=== PATIENT | female | born 1995 | race Caucasian/White ===

== ENCOUNTER 2024-01-11 23:01 | Outpatient (CLI) | payer MEDICAID, SELFPAY ==
[2024-01-11 22:40] VITALS: BMI 27.9
[2024-01-11 23:15] VITALS: BP 130/59; PULSE 105
--- NOTE | 2024-01-11 23:16 | USR_ITS ---
PROCEDURE INFORMATION: Exam: US After First Trimester, Transabdominal Exam date and time: 01/11/2024 11:43 PM Age: 28 years old Clinical indication: Other: No care; ; Additional info: No care, elissa, bpp, due date LABS AND CLINICAL REPORTS: Last menstrual period start date: 04/08/2023 Gestational age (Established): 39 w 5 d Estimated due date (Established): 01/13/2024 TECHNIQUE: Imaging protocol: Real-time transabdominal obstetrical ultrasound of the maternal pelvis and a second or third trimester with image documentation. COMPARISON: No relevant prior studies available. FINDINGS: Single living fetus in cephalic position. Biophysical profile was 8/. Anterior placenta. No visible placental abnormality on the provided images. Amniotic fluid volume appears within normal limits for gestation, ELISSA 12.7 cm. Cervical length was estimated with transabdominal scanning, measuring approximately 4.2 cm. No definite cervical canal dilation or fluid on the provided images. BPD: , 9.7 cm. , 39 weeks, 5 days HC: , 34.0 cm. , 39 weeks, 1 day AC: , 36.4 cm. , 40 weeks, 2 days FL: , 7.8 cm. , 40 weeks, 0 days Composite age: 39 weeks, 6 days. Estimated weight: 3960 grams, (8 lb 12 oz). heart activity documented by the technologist, 153 bpm. Complete/detailed evaluation of anatomy was not performed/possible at this time. However, limited gross visualization of anatomy on the provided images appears within normal limits for gestation, including four-chamber heart, stomach, kidneys, urinary bladder, three-vessel cord, spine, cerebral lateral ventricles, cerebellum, cisterna magna. There is at least partial visualization the upper and lower extremities. Cord insertion was not visualized. Limited/insufficient visualization of the facial structures. No visible maternal adnexal abnormality. The urinary bladder was not completely evaluated/imaged at this time. 1. Single living fetus, composite age: 39 weeks, 6 days. 2. Biophysical profile 8. 3. Amniotic fluid volume appears within normal limits for gestation, ELISSA 12.7 cm. 4. Anterior placenta. No visible placental abnormality on the provided images. 5. Other details/findings discussed above. PROCEDURE INFORMATION: Exam: US Biophysical Profile Without Non-Stress Test Exam date and time: 01/11/2024 11:43 PM Age: 28 years old Clinical indication: Other: No care; ; Additional info: No care, elissa, bpp, due date TECHNIQUE: Imaging protocol: US biophysical profile without non-stress testing. COMPARISON: No relevant prior studies available. FINDINGS: Single living fetus in cephalic position. Biophysical profile was 8/8. Anterior placenta. No visible placental abnormality on the provided images. Amniotic fluid volume appears within normal limits for gestation, ELISSA 12.7 cm. Cervical length was estimated with transabdominal scanning, measuring approximately 4.2 cm. No definite cervical canal dilation or fluid on the provided images. BPD: , 9.7 cm. , 39 weeks, 5 days HC: , 34.0 cm. , 39 weeks, 1 day AC: , 36.4 cm. , 40 weeks, 2 days FL: , 7.8 cm. , 40 weeks, 0 days Composite age: 39 weeks, 6 days. Estimated weight: 3960 grams, (8 lb 12 oz). heart activity documented by the technologist, 153 bpm. Complete/detailed evaluation of anatomy was not performed/possible at this time. However, limited gross visualization of anatomy on the provided images appears within normal limits for gestation, including four-chamber heart, stomach, kidneys, urinary bladder, three-vessel cord, spine, cerebral lateral ventricles, cerebellum, cisterna magna. There is at least partial visualization the upper and lower extremities. Cord insertion was not visualized. Limited/insufficient visualization of the facial structures. No visible maternal adnexal abnormality. The urinary bladder was not completely evaluated/imaged at this time. US/US OB BPP wo NST [id number] IMPRESSION: IMPRESSION: 1. Single living fetus, composite age: 39 weeks, 6 days. 2. Biophysical profile 8. 3. Amniotic fluid volume appears within normal limits for gestation, ELISSA 12.7 cm. 4. Anterior placenta. No visible placental abnormality on the provided images. 5. Other details/findings discussed above.
[2024-01-11 23:25] VITALS: BP 103/71; PULSE 107
[2024-01-11 23:34] VITALS: BP 148/77; PULSE 95
[2024-01-12 00:04] LABS: Basophils % 0.4 %; Eosinophils # 0.1 10^3/uL (0.0-0.8); Eosinophils % 0.5 %; Hematocrit 41.4 % (36-47); Lymphocytes # 1.9 10^3/uL (0.8-4.8); Lymphocytes % 17.4 %; Mean Corpuscular HGB Conc 33.6 g/dL (30-55); Mean Corpuscular Hemoglobin 29.7 pg (27-33); Mean Corpuscular Volume 88.5 fl (85-98); Mean Platelet Volume 11.7 fL (7.4-10.4); Monocytes # 0.6 10^3/uL (0.2-0.9); Monocytes % 5.3 %; Neutrophils # 8.42 10^3/uL (1.8-7.7); Neutrophils % 75.8 %; Nucleated Red Blood Cells % 0 %; Platelet Count 225 10^3/cmm (157-399); Red Blood Count 4.68 10^6/uL (3.85-5.65); Red Cell Distribution Width 13.7 % (12.1-15.1); White Blood Count 11.12 10^3/uL (3.29-11.43)
[2024-01-12 00:32] LABS: Amphetamines Screen Urine Negative (Negative); Barbiturates Screen Urine Negative (Negative); Benzodiazepines Screen Urine Negative (Negative); Cocaine Screen Urine Negative (Negative); Opiate Screen Urine Negative (Negative); PCP Screen Urine Negative (Negative); THC Screen Urine Negative (Negative)
[2024-01-12 00:38] LABS: Hepatitis B Surface Antigen Non-Reactive (Nonreactive); Rapid Plasma Reagin Syphilis Nonreactive (Nonreactive)
[2024-01-12 00:43] LABS: HIV 1 & 2 Antibody Non-Reactive (Non-Reactiv); HIV 1 & 2 Antigen Non-Reactive (Non-Reactiv)
[2024-01-12 01:23] VITALS: BP 115/79; PULSE 96
[2024-01-12 01:33] VITALS: BP 115/79; PULSE 79; RESP 18
[2024-01-13 12:29] LABS: Chlamydia Trachomatis RNA TMA DETECTED (NOT DETECTED); Neisseria Gonorrhoeae RNA, TMA NOT DETECTED (NOT DETECTED)
== END 2024-01-12 01:35 | disposition home or self-care (01) ==
LOC: OBGYN 01-12 08:35 → OPOB 01-12 14:26 → OBGYN 01-12 14:26
PROVIDERS: Visit Provider Family Medicine
DX: O26.899 Other specified pregnancy related conditions, unspecified trimester (principal); Z3A.00 Weeks of gestation of pregnancy not specified; R10.9 Unspecified abdominal pain
CPT/HCPCS: 36415; 59025; 76819; 85025; 86592; 86762; 86850; 86900; 87340; 87806; 99211

== ENCOUNTER 2024-01-12 16:53 | Inpatient (IN) | payer MEDICAID, SELFPAY ==
[2024-01-12] VITALS (16 sets, daily range): BP systolic 105–141; BP diastolic 55–84; PULSE 77–120; RESP 16; TEMP 36.8; O2SAT 98–99; BMI 27.9
[2024-01-12 16:55] LABS: Basophils # 0.1 10^3/uL (0.0-0.1); Basophils % 0.4 %; Eosinophils % 0.2 %; Hematocrit 37.9 % (36-47); Lymphocytes # 1.9 10^3/uL (0.8-4.8); Lymphocytes % 13.1 %; Mean Corpuscular HGB Conc 34.3 g/dL (30-55); Mean Corpuscular Hemoglobin 30.4 pg (27-33); Mean Corpuscular Volume 88.8 fl (85-98); Mean Platelet Volume 11.7 fL (7.4-10.4); Monocytes # 0.6 10^3/uL (0.2-0.9); Neutrophils # 11.62 10^3/uL (1.8-7.7); Neutrophils % 81.7 %; Nucleated Red Blood Cells % 0 %; Platelet Count 216 10^3/cmm (157-399); Red Blood Count 4.27 10^6/uL (3.85-5.65); Red Cell Distribution Width 13.8 % (12.1-15.1); White Blood Count 14.22 10^3/uL (3.29-11.43)
[2024-01-12] MEDS: dextrose 5%-lactated ringers 1,000 ML 125 ML IV (17:27)
[2024-01-12] MEDS: oxytocin 30 UNIT/500 ML BAG 600 UNIT IV (17:27)
--- NOTE | 2024-01-12 17:30 | P.HP_ITS ---
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 G ?7 P6 No care h/o x six presents at term with painful uterine contractions and spontaneous rupture of membranes with clear fluid patient with no care patient had all previous deliveries at home with a camera tuning engineer she was anticipating delivering at home with this , however, was unable to find a camera tuning engineer at the last minute PMHx: unavailable PSHx: unavailable Present Details : 6 Para: 5 Labs Rubella: Non-Immune RPR: Negative GBS: Unknown Medications/Allergies Home Medications Medication Instructions Recorded Confirmed Last Taken Type ferrous sulfate 325 mg (65 mg 325 mg PO DAILY 01/12/24 01/12/24 Unknown History iron) tablet prenat.vits,kristy,zsv-krgs-iwaue 1 tab PO DAILY 01/12/24 01/12/24 Unknown History Allergies Allergy/AdvReac Type Severity Reaction Status Date / Time red dye Allergy Unknown Verified 01/12/24 18:27 Vitals/I&O/Wt Last Vital Signs Temp 98.5 F 01/13/24 01:15 Pulse 94 01/13/24 02:50 Resp 16 01/13/24 02:50 BP 121/68 01/13/24 02:50 Pulse Ox 97 01/13/24 02:50 O2 Del Method Room Air 01/13/24 02:50 01/12/24 01/12/24 01/13/24 14:59 22:59 06:59 Intake Total 750 / 750 Balance 750 / 750 Weight last 48 hrs Weight 138 lb 8 oz Physical Exam 2 Narrative: Weight 138 lbs; 4?11? General: in discomfort due to contractions Cervix: 8 ? 9 cm / 100 % / + 1 station External monitor: heart tracing good variability, + accelerations Data 01/13/24 05:10 Results Labs OB ([facility]): 2 Obstetrics US/Biophysical Profile Blood Type O Positive 01/12/24 Antibody Screen Negative 01/12/24 Hct 28.7 % (36-47) L 01/13/24 Hgb 9.40 g/dL (11.27-16.99) L 01/13/24 Rho(D) Type Rh positive 01/12/24 Plt Count 144 10^3/cmm (157-399) L 01/13/24 Hep Bs Antigen Non-reactive (Nonreactive) 01/11/24 Rubella IgG Antibody 1.0 IU/mL (0.0-10.0) 01/11/24 RPR Nonreactive (Nonreactive) 01/11/24 HIV 1&2 Ab & HIV 1 Ag Non-reactive (Non-Reactiv) 01/11/24 C.trachomatis RNA (TMA) Pending 01/11/24 N.gonorrhoeae RNA (TMA) Pending 01/11/24 Chlamydia/GC Comment Pending 01/11/24 Urine Opiates Screen Negative ng/mL (Negative) 01/11/24 Ur Barbiturates Screen Negative ng/mL (Negative) 01/11/24 Ur Phencyclidine Scrn Negative ng/mL (Negative) 01/11/24 Ur Amphetamines Screen Negative ng/mL (Negative) 01/11/24 U Benzodiazepines Scrn Negative ng/mL (Negative) 01/11/24 Urine Cocaine Screen Negative ng/mL (Negative) 01/11/24 U Marijuana (THC) Screen Negative ng/mL (Negative) 01/11/24 A&P Assessment and plan (1) Active labor: Term , according to patient No care In active labor Cervical exam shows imminent delivery Attestations 2 Medical Necessity Statement*: patient at term with painful contractions Coding Level of Care Code Acute Code for Chg Fwd Diagnoses Active labor Time Spent (min) 20
--- NOTE | 2024-01-12 17:50 | PM.DELIVERY ---
Delivery Note: Date of delivery: January 13, 2024 Pre-delivery diagnoses: no care term active labor spontaneous rupture of membranes cervix at 8-9 cm Post-delivery diagnoses: no care term active labor spontaneous rupture of membranes cervix at 8-9 cm vaginal delivery Procedure: vaginal delivery Op report anesthesia: None Delivering Physician: Torey Reynolds MD Estimated blood loss (mL): 300 Findings: , vigorous female infant + true knot in cord Normal placenta Cord blood obtained No episiotomy / lacerations EBL: 300 cc No complications Delivery: vaginal Post-Delivery Status: good A&P Assessment and plan (1) Vaginal delivery: Coding Level of Care Code Acute Code for Chg Fwd Diagnoses Vaginal delivery O80 Time Spent (min) 60
--- NOTE | 2024-01-12 19:46 | PC.NURSE ---
On presentation patient stated she had had limited care, she states she had had one ultrasound. 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 Patient states that she actually has had care with Yesi at [facility] in [place], [place].
[2024-01-13 01:15] VITALS: BP 114/65; PULSE 88; RESP 16; TEMP 36.9; O2SAT 98
[2024-01-13 02:50] VITALS: BP 121/68; PULSE 94; RESP 16; O2SAT 97
[2024-01-13 05:19] LABS: Hematocrit 28.7 % (36-47); Mean Corpuscular HGB Conc 32.8 g/dL (30-55); Mean Corpuscular Hemoglobin 30.5 pg (27-33); Mean Corpuscular Volume 93.2 fl (85-98); Mean Platelet Volume 12.1 fL (7.4-10.4); Platelet Count 144 10^3/cmm (157-399); Red Blood Count 3.08 10^6/uL (3.85-5.65); Red Cell Distribution Width 13.8 % (12.1-15.1); White Blood Count 12.01 10^3/uL (3.29-11.43)
[2024-01-13 10:50] VITALS: BP 102/64; PULSE 87; RESP 16; TEMP 36.9; O2SAT 97
--- NOTE | 2024-01-13 12:50 | P.PN_ITS ---
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 fundus firm Ext: no edema; nontender Data 01/13/24 05:10 A&P Assessment and plan (1) Vaginal delivery: PPD #1 doing well discharge to home today instructions and precautions given call/return if fever, chills, headache, blurry vision, nausea, vomiting, abdominal pain; vaginal bleeding or discharge; shortness of breath, chest pain, leg pains or swelling; inability to void, perineal pain or swelling; feelings of depression or mood changes; thoughts of suicide or harming others; inability to care for baby. f/u in 6 weeks or PRN Attestations 2 Medical Necessity Statement*: patient s/p vaginal delivery, plan discharge to home today Coding Level of Care Code Acute Code for Chg Fwd Diagnoses Vaginal delivery O80 Time Spent (min) 20
--- NOTE | 2024-01-13 12:55 | P.DS_ITS ---
Discharge Providers CREATIVE ART DIRECTOR Date of Admission: 01/12/24 16:53 Date of Discharge: 01/13/24 Attending Provider at Admission: Torey Reynolds MD Attending Provider at Discharge: Torey Reynolds MD Consults: none Primary CREATIVE ART DIRECTOR: none Diagnoses at Discharge Discharge Diagnosis (1) Vaginal delivery: Details from hospital stay: patient with no care presented to L&D at term c/o painful uterine contractions cervix at presentation was 8 cm patient delivered vaginally without any lacerations patient did well was discharged to home on the first day Status: Acute Reason for Visit Reason for Visit: Poss. SROM Brief History: patient with no care 28 y.o. h/o previous vaginal deliveries x six presented to L&D at term c/o painful uterine contractions cervix at presentation was 8 cm Hospital Course Hospital Course patient with no care presented to L&D at term c/o painful uterine contractions cervix at presentation was 8 cm patient delivered vaginally without any lacerations patient did well was discharged to home on the first day Information Peripartum Data: Delivery Method: Vaginal Laceration description: None Episiotomy description: None complications: none Physical Exam Narrative: afebrile, VS normal comfortable, awake, alert Abd: soft, nontender. fundus firm Ext: no edema; nontender Discharge Data Studies Completed and Pending Laboratory Results WBC 12.01 10^3/uL (3.29-11.43) H 01/13/24 05:10 RBC 3.08 10^6/uL (3.85-5.65) L 01/13/24 05:10 Hgb 9.40 g/dL (11.27-16.99) L 01/13/24 05:10 Hct 28.7 % (36-47) L 01/13/24 05:10 MCV 93.2 fl (85-98) 01/13/24 05:10 MCH 30.5 pg (27-33) 01/13/24 05:10 MCHC 32.8 g/dL (30-55) 01/13/24 05:10 RDW 13.8 % (12.1-15.1) 01/13/24 05:10 Plt Count 144 10^3/cmm (157-399) L D 01/13/24 05:10 MPV 12.1 fL (7.4-10.4) H 01/13/24 05:10 Neut % (Auto) 81.7 % 01/12/24 16:45 Lymph % (Auto) 13.1 % 01/12/24 16:45 [place] % (Auto) 4.0 % 01/12/24 16:45 Eos % (Auto) 0.2 % 01/12/24 16:45 Baso % (Auto) 0.4 % 01/12/24 16:45 Neut # (Auto) 11.62 10^3/uL (1.8-7.7) H 01/12/24 16:45 Lymph # (Auto) 1.9 10^3/uL (0.8-4.8) 01/12/24 16:45 [place] # (Auto) 0.6 10^3/uL (0.2-0.9) 01/12/24 16:45 Eos # (Auto) 0.0 10^3/uL (0.0-0.8) 01/12/24 16:45 Baso # (Auto) 0.1 10^3/uL (0.0-0.1) 01/12/24 16:45 Nucleated RBC % (auto) 0 % 01/12/24 16:45 Nucleated RBCs # 0.0 /100WBC 01/12/24 16:45 Blood Type O Positive 01/12/24 17:35 Rho(D) Type Rh positive 01/12/24 17:35 Antibody Screen Negative 01/12/24 17:35 Procedures Performed vaginal delivery Vitals Last Vital Signs Temp 98.3 F 01/13/24 19:49 Pulse 101 H 01/13/24 19:49 Resp 16 01/13/24 19:49 BP 127/69 01/13/24 19:49 Pulse Ox 97 01/13/24 19:49 O2 Del Method Room Air 01/13/24 15:30 Results Labs OB ([facility]): Obstetrics US/Biophysical Profile Blood Type O Positive 01/12/24 Antibody Screen Negative 01/12/24 Hct 28.7 % (36-47) L 01/13/24 Hgb 9.40 g/dL (11.27-16.99) L 01/13/24 Rho(D) Type Rh positive 01/12/24 Plt Count 144 10^3/cmm (157-399) L 01/13/24 Hep Bs Antigen Non-reactive (Nonreactive) 01/11/24 Rubella IgG Antibody 1.0 IU/mL (0.0-10.0) 01/11/24 RPR Nonreactive (Nonreactive) 01/11/24 HIV 1&2 Ab & HIV 1 Ag Non-reactive (Non-Reactiv) 01/11/24 C.trachomatis RNA (TMA) Detected (NOT DETECTED) A 01/11/24 N.gonorrhoeae RNA (TMA) Not detected (NOT DETECTED) Chlamydia/GC Comment See note 01/11/24 Urine Opiates Screen Negative ng/mL (Negative) 01/11/24 Ur Barbiturates Screen Negative ng/mL (Negative) 01/11/24 Ur Phencyclidine Scrn Negative ng/mL (Negative) 01/11/24 Ur Amphetamines Screen Negative ng/mL (Negative) 01/11/24 U Benzodiazepines Scrn Negative ng/mL (Negative) 01/11/24 Urine Cocaine Screen Negative ng/mL (Negative) 01/11/24 U Marijuana (THC) Screen Negative ng/mL (Negative) 01/11/24 Discharge Plan Discharge Patient Disposition: Home Condition: Stable Prescriptions: Continued prenat.vits,kristy,bsb-meyq-pwoti Tablet 1 tab PO DAILY ferrous sulfate 325 mg (65 mg iron) Tablet 325 mg PO DAILY Discharge Orders: Discharge Order (Routine); Ordered 01/13/24 Ordered By: Torey Reynolds Discharge Diet: Usual diet Discharge Activity: Increase activity as tolerated Patient Instructions: Depression (DC), Opioid Safety (DC), Preeclampsia and Eclampsia After Delivery (GEN), Hemorrhage (DC), OB D&C - [facility], OB Food/Drug Interaction Guide, Opioid Safety, OB Home Care, OB Vaginal Deliveries - [facility], Abnormal Bleeding Activity Restrictions/Additional Instructions: followup appointment with me in two weeks Discharge Attestations CREATIVE ART DIRECTOR Time Spent in Discharge Care*: less than 30 min Coding Level of Care Code Acute Code for Chg Fwd Diagnoses Vaginal delivery O80 Time Spent (min) 20
[2024-01-13 15:30] VITALS: BP 108/72; PULSE 92; RESP 16; TEMP 36.8; O2SAT 97
[2024-01-13 19:49] VITALS: BP 127/69; PULSE 101; RESP 16; TEMP 36.8; O2SAT 97
== END 2024-01-13 19:40 | disposition home or self-care (01) | DRG 807 ==
LOC: OPOB 16:53 → OBGYN 16:53
PROVIDERS: Family Medicine; Admitting Provider Obstetrics & Gynecology; Visit Provider Obstetrics & Gynecology
DX: O69.2XX0 Labor and delivery complicated by other cord entanglement, with compression, not applicable or unspecified (principal); Z37.0 Single live birth; Z3A.40 40 weeks gestation of pregnancy
CPT/HCPCS: 36415; 59025; 59409; 85025; 85027; 86850; 86900; 99211; J2590; J7121